=== PATIENT | male | born 1960 | race Caucasian/White ===

== ENCOUNTER 2022-03-23 08:59 | Outpatient (REF) | payer OTHER, SELFPAY ==
--- NOTE | 2022-04-01 09:46 | MHC.AU.ANO ---
Adult Audiological Evaluation Date of Visit: 03/23/22 Reason for Appointment: Patient reports that a few months ago he was experiencing pain and drainage in his right ear. He went to his PCP, who found a perforation in his right tympanic membrane. His ear was treated, and his PCP said the perforation appears to have healed. They would like to see if there are any lingering effects on his hearing or middle ear function. Patient does not feel he experiences hearing difficulty in most daily situations. History of occupational noise exposure. Has hearing been tested previously?: No Hearing Handicap Inventory: HHIE SCORE: 2 Based on HHIE score, patient has: No perceived hearing handicap Ear History: Ear Deformity: None Reported Recent Ear Drainage: Right Ear Recent Ear Pain: Right Ear Family History of Hearing Loss?: No Ear Infections in Childhood: None Reported History of Ear Wax Buildup: None Reported Previous Ear Surgery: None Reported Bothersome Tinnitus/Ringing/Noises in Ears: None Reported Ear used on the phone: Left Ear Blocked/Full Sensation in Ear(s): None Reported History of occupational noise exposure?: Yes: [employer] for over 40 years History: No Medical History: Medical History: High Blood Pressure Otoscopy: Right Ear: Unremarkable Left Ear: Unremarkable Tympanometry: Tympanometry performed due to: Prior history of tympanic membrane perforation Right Ear: Normal Middle Ear System (Type A) Left Ear: Normal Middle Ear System (Type A) Hearing Evaluation: Transducer(s) Used: Insert Earphones Method: Conventional Audiometry Stimuli Used: Pure Tones Right Ear: Description of Hearing: Mild hearing loss from 250-2000 Hz, sloping to a moderate notch at 4000 Hz, and rising back to mild sensorineural heairng loss by 8000 Hz Left Ear: Description of Hearing: Mild hearing loss from 250-2000 Hz, sloping to a moderate notch at 4000 Hz, and rising back to mild sensorineural heairng loss by 8000 Hz Speech Recognition Threshold (SRT): Method Used: Recorded Lists Stimuli Used: Spondee Words Right Ear: 30 dBHL Left Ear: 30 dBHL Word Discrimination: Method: Recorded Lists Word Lists Used: W-22 Right Ear: 92% at 60 dBHL Left Ear: 88% at 60 dBHL Most Comfortable Level (MCL): Right Ear: 60 dBHL Left Ear: 60 dBHL Interpretation of Results: Patient presents with mild/moderate sensorineural hearing loss bilaterally. There is no indication based on today's testing that the now-healed tympanic membrane perforation had a lasting effect on his hearing. There is no conductive component to the hearing and no middle ear dysfunction noted. Recommendations: Audiological re-evaluation in 1-2 years. Patient feels he is hearing well in most daily situations. Hearing aids may not yet be warranted. Diagnosis: Primary Diagnosis: H90.3 Bilateral Sensorineural Hearing Loss Signature: Provider: Albaro Juárez, [id number]-A
== END 2022-03-23 09:00 | disposition home or self-care (01) ==
LOC: HO.SH 08:59
PROVIDERS: Visit Provider Internal Medicine
DX: Z01.118 Encounter for examination of ears and hearing with other abnormal findings (principal); H90.3 Sensorineural hearing loss, bilateral
CPT/HCPCS: 92557; 92567